=== PATIENT | male | born 1945 | race Caucasian/White ===

== ENCOUNTER 2016-06-26 22:41 | Observation (INO) | payer MEDICARE, OTHER ==
[2016-06-26] MEDS ORDERED: AMLODIPINE (23:22)
[2016-06-26] MEDS ORDERED: FLONASE ALLERG9.9 ML (23:22)
[2016-06-26] MEDS ORDERED: SYMBICORT 160-1 PUFF (23:22)
[2016-06-26] MEDS ORDERED: LOSARTAN (23:22)
[2016-06-26] MEDS ORDERED: OMEPRAZOLE (23:23)
[2016-06-26] MEDS ORDERED: SYMBICORT (23:24)
[2016-06-27 00:01] LABS: BASO % 0.4 % (0-2); EOS % 4.8 % (0-7); EOSINOPHIL ABSOLUTE COUNT 0.5 tho/cmm (0.0-0.7); HCT-HEMATOCRIT 42.6 % (36.0-53.5); HGB-HEMOGLOBIN 14.8 gm/dl (13.5-17.0); IMMATURE GRANULOCYTES ABSOLUTE 0.04 tho/cmm (0-0.03); IMMATURE GRANULOCYTES PERCENT 0.4 % (0-0.3); LYMPH % 26.1 % (20-45); LYMPH ABSOLUTE COUNT 2.7 tho/cmm (0.8-4.5); MCH (MEAN CORPUSCULAR HGB) 30.5 pg (28.0-32.0); MCHC MEAN CORPUSCULAR HGB CONC 34.7 % (32.0-36.0); MCV (MEAN CELL VOLUME) 87.7 fl (82.0-96.0); MEAN PLATELET VOLUME 9.4 cmc (9.4-12.4); MONO % 8.4 % (0-12); MONOCYTE ABSOLUTE COUNT 0.9 tho/cmm (0.0-1.2); NEUTROPHIL ABSOLUTE COUNT 6.1 tho/cmm (1.6-8.0); NEUTROPHIL-AUTOMATED 6.1 tho/cmm (1.6-8.0); NEUTROPHILS % 59.9 % (40-80); PLATELET COUNT 250 tho/cmm (150-450); RED BLOOD COUNT 4.86 mil/cmm (4.40-5.70); RED CELL DISTRIBUTION WIDTH 13.1 % (12.4-16.4); WHITE BLOOD COUNT 10.2 tho/cmm (4.0-10.0)
[2016-06-27 00:11] LABS: URINE BILIRUBIN NEGATIVE (NEG); URINE BLOOD NEGATIVE (NEG); URINE GLUCOSE (UA) NEGATIVE (NEG); URINE KETONE SMALL (NEG); URINE LEUKOCYTE ESTERASE NEGATIVE (NEG); URINE NITRITE NEGATIVE (NEG); URINE PROTEIN SMALL (NEG); URINE SPECIFIC GRAVITY 1.015 (1.003-1.030)
[2016-06-27 00:14] LABS: URINE APPEARANCE CLEAR; URINE COLOR YELLOW
[2016-06-27 00:17] LABS: ALB/GLOB RATIO 1.1 (0.8-2.0); ALBUMIN 3.2 g/dl (3.5-5.0); ALKALINE PHOSPHATASE 57 U/L (33-138); ALT/SGPT 29 U/L (12-78); ANION GAP 13 mmol/L (0-20); AST/SGOT 23 U/L (10-40); BILIRUBIN,TOTAL 0.2 mg/dl (0.0-1.5); BLOOD UREA NITROGEN 18 mg/dl (6-24); CALCIUM 9.1 mg/dl (8.5-10.5); CARBON DIOXIDE-VENOUS 23 mmol/L (22-32); CHLORIDE 104 mmol/l (96-110); CREATININE 0.97 mg/dl (0.60-1.30); GLUCOSE 107 mg/dL (70-110); MAGNESIUM 2.3 mg/dl (1.3-2.6); SODIUM 136 mmol/L (135-145); eGFR VALUE FOR BLACK >90 mL/Min
[2016-06-27 00:20] LABS: URINE EPITHELIAL CELLS 0-1 /[HPF] (0-10); URINE RBC 0 /[HPF] (0-5); URINE WBC 0-1 /[HPF] (0-5)
[2016-06-27 00:21] LABS: TSH-THYROID STIMULATING HORM. 8.39 uIU/ml (0.40-3.80)
[2016-06-27 07:21] LABS: CHOLESTEROL 143 mg/dl (120-200); HDL CHOLESTEROL 47 mg/dl (40-60); LDL CHOLESTEROL 82 mg/dl (0-99); TRIGLYCERIDES 74 mg/dl (<149); VLDL 15 mg/dl (0-30)
[2016-06-27] MEDS ORDERED: OMEPRAZOLE40 M2 PO (09:26)
[2016-06-27] MEDS ORDERED: SYMBICORT 80-41 PUFF INH (09:26)
[2016-06-27] MEDS ORDERED: NORVASC5 M2 PO (09:27)
[2016-06-27] MEDS ORDERED: FLONASE ALLERG9.9 ML (09:27)
[2016-06-27] MEDS ORDERED: HYZAAR 100-12.1 EACH PO (09:27)
[2016-06-28 06:05] LABS: BASO % 0.5 % (0-2); EOSINOPHIL ABSOLUTE COUNT 0.3 tho/cmm (0.0-0.7); HCT-HEMATOCRIT 41.9 % (36.0-53.5); IMMATURE GRANULOCYTES ABSOLUTE 0.02 tho/cmm (0-0.03); IMMATURE GRANULOCYTES PERCENT 0.2 % (0-0.3); LYMPH % 18.3 % (20-45); LYMPH ABSOLUTE COUNT 1.6 tho/cmm (0.8-4.5); MCH (MEAN CORPUSCULAR HGB) 29.7 pg (28.0-32.0); MCHC MEAN CORPUSCULAR HGB CONC 33.4 % (32.0-36.0); MEAN PLATELET VOLUME 9.7 cmc (9.4-12.4); MONO % 8.3 % (0-12); MONOCYTE ABSOLUTE COUNT 0.7 tho/cmm (0.0-1.2); NEUTROPHILS % 69.7 % (40-80); PLATELET COUNT 221 tho/cmm (150-450); RED BLOOD COUNT 4.71 mil/cmm (4.40-5.70); RED CELL DISTRIBUTION WIDTH 13.3 % (12.4-16.4); WHITE BLOOD COUNT 8.6 tho/cmm (4.0-10.0)
[2016-06-28 06:19] LABS: ANION GAP 10 mmol/L (0-20); BLOOD UREA NITROGEN 15 mg/dl (6-24); CALCIUM 8.9 mg/dl (8.5-10.5); CARBON DIOXIDE-VENOUS 27 mmol/L (22-32); CHLORIDE 106 mmol/l (96-110); GLUCOSE 127 mg/dL (70-110); POTASSIUM 4.2 mmol/L (3.7-5.1); SODIUM 139 mmol/L (135-145); eGFR VALUE FOR BLACK 87 mL/Min
[2016-06-29 06:09] LABS: BLOOD UREA NITROGEN 9 mg/dl (6-24); eGFR VALUE FOR BLACK >90 mL/Min
[2016-06-29] MEDS ORDERED: ASPIRIN81 M1 PO (10:04)
[2016-06-29] MEDS ORDERED: BRILINTA90 M1 PO (10:05)
[2016-06-29] MEDS ORDERED: CRESTOR20 M1 PO (10:07)
[2016-06-29] MEDS ORDERED: SYNTHROID125 MC1 PO ×2 (10:08→12:58)
[2016-06-29] MEDS ORDERED: NITROGLYCERIN0.4 M2 SL (12:53)
[2016-06-29] MEDS ORDERED: COZAAR100 M1 PO (12:54)
[2016-06-29] MEDS ORDERED: MUCINEX600 M1 PO (12:55)
== END 2016-06-29 14:45 ==
LOC: EDMED 22:41 → EMR2 06-27 02:43 → PCUB 06-27 02:54
PROVIDERS: Emergency Medicine; Internal Medicine Cardiovascular Disease; Internal Medicine Interventional Cardiology; ADMIT Internal Medicine Cardiovascular Disease
PROC: 4A023N7 Measurement of Cardiac Sampling and Pressure, Left Heart, Percutaneous Approach (ICD-10-PCS; principal; 2016-06-28)
PROC: B2111ZZ Fluoroscopy of Multiple Coronary Arteries using Low Osmolar Contrast (ICD-10-PCS; 2016-06-28)
PROC: 027034Z Dilation of Coronary Artery, One Artery with Drug-eluting Intraluminal Device, Percutaneous Approach (ICD-10-PCS; 2016-06-28)
DX: I25.10 Atherosclerotic heart disease of native coronary artery without angina pectoris (principal); I10 Essential (primary) hypertension; J45.909 Unspecified asthma, uncomplicated; R00.1 Bradycardia, unspecified; K21.9 Gastro-esophageal reflux disease without esophagitis; E03.9 Hypothyroidism, unspecified; D72.829 Elevated white blood cell count, unspecified; Z79.899 Other long term (current) drug therapy; Z82.3 Family history of stroke
CPT/HCPCS: A9500; C1725; C1769; C1874; C1887; C1894; C9600-RC; G0378; J1644; J2250; J2785; J3010; J7030; Q9967